=== PATIENT | male | born 1970 | race African-American/Black ===

== ENCOUNTER → 2020-08-12 | Outpatient (CLI) | payer OTHER ==
[~2020-08-12] MED LIST: CELE1CAP4 PO; CELE1CAP9 PO; IBUP80TA PO; IPRA6SP NARES; NICO14DI20 TD; diclofenac
--- NOTE | 2020-08-12 11:30 | RADONC.CN ---
Radiation Oncology Hx/Consult Radiation Oncology Consult Date of Service: Aug 12, 2020 Pt Identifier Jackson Rayo is a 50 year old male 30 pack year current smoker with a new diagnosis of screening colonoscopy detected low rectal cancer [id number]. He is seen for consideration of neoadjuvant chemoradiation. Diagnosis/Treatment History Oncologic History Reports brother had stage IV cancer and ostomy unsure if colorectal or not. 05/18/20 Screening colonoscopy ([facility]) with distal rectal TVA with high grade dysplasia concerning for cancer 06/15/20 CT CAP negative 07/01/21 MRI pelvis rectal protocol ([facility]) mucosal lesion invading muscularis 2.4 cm from verge from 8-11 o'clock, [address] >0.5cm, cT2N1 07/26/20 Flex sig rebiopsy revealing invasive adenocarcinoma arising in TVA Interval History Jackson has minimal complaints today. Had some dyschezia post biopsy but his has resolved. No BRBPR, no difficulty passing BMs or gas. Goes 1-2 times daily regular soft BMs. No weight loss or fatigue. Appetite good. Works overnights at [employer]. Past Medical History: None Past Surgical History: As above Family History: Maternal grandmother breast cancer Brother stage IV cancer (unknown histology) had ostomy Social History: Current 1/2 ppd smoker 30 pack years Non-drinker Allergies / Meds Allergies: Coded Allergies: MS - Bee Venom (Unverified Allergy, Unknown, RASH/INFLAMMATION, 09/13/15) Home Meds Active Scripts Nicotine (Nicotine Patch) 1 Patch Tdsy, 1 PATCH TD DAILYPRN PRN for NICOTINE W ITHDRAWAL for 30 Days, PATCH Prov:JONI CORBETT MD 09/17/15 Review of Systems Constitutional: Denies: Chills, Fever, Night Sweats Eyes: Denies: Pain, Vision change HEENT: Denies: Head Aches, Dysphagia, Sore Throat Skin: Denies: Rash, Lesions, Bruising Pulmonary: Denies: Dyspnea, Cough Cardiovascular: Denies: Chest Pain, Palpitations, Edema Gastrointestinal: Denies: Nausea, Vomiting, Abdominal Pain, Diarrhea Genitourinary: Denies: Dysuria, Frequency, Incontinence Hematologic: Denies: Bruising, Petecchia, Enlarged Lymph Nodes Musculoskeletal: Denies: Neck pain, Back pain Neurological: Denies: Weakness, Numbness, Incoordination Psych: Reports: Mood Normal; Denies: Memory Issues, Thoughts of Self Harm Vital Signs Ht 71" Wt 185 lb T 98 P 74 RR 18 BP 123/81 O2 97% Pain 0 Fatigue 0 General Exam: Positive: Alert, Cooperative, No Acute Distress Eye Exam: Positive: PERRLA, EOMI ENT EXAM: Positive: Mucous membr. moist/pink, Pharynx Normal Neck Exam: Negative: Thyromegaly, Lymphadenopathy Chest Exam: Positive: Normal air movement; Negative: Rales, Rhonchi, Wheezing Heart Exam: Positive: Rate Normal, Regular Rhythm Abdomen Exam: Positive: Soft; Negative: Tenderness, Mass Extremity Exam: Negative: Edema, Tenderness Skin Exam: Positive: Nl turgor and temperature; Negative: Rash Neuro Exam: Positive: Normal Gait, Normal Speech, Cranial Nerves 3-12 NL Psych Exam: Positive: Mental status NL, Mood NL, Memory Intact Other Physical Findings ALEJANDRA, enlarged prostate, no nodularity. ~3 cm from the verge there is a small indurated mucosal lesion in the left lateral lumen ~ centered @ 9 o'clock, no bl ood return on glove. Diagnostic and Laboratory Diagnostic Review Radiologic images, relevant labs and pathology reports were personally reviewed and discussed with Mr. Rayo. Assessment and Plan Impression Mr. Rayo is a 50 year old male 30 pack year current smoker with a new diagnosis of screening colonoscopy detected low rectal cancer [id number]. He is seen for consideration of neoadjuvant chemoradiation. 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 Rayo regarding the diagnosis at hand and available therapeutic options. He is very fit and has minimal tumor burden. The tumor is low, ~2-3 cm from the verge however, which may complicate his resection. I agree with Dr. Augustin that long course chemoradiation 50.4 Gy in 28 fractions with xeloda would be the best initial approach. I would treat him prone with 3D planning and daily CBCT for localization. In his case I will attempt to spare the sphincter complex from high dose as the lesion itself does not extend to the level of the anus, and I would not want to complicate the possibility of a good functional outcome for him if he is able to undergo LAR and re-anastomosis, or even be managed with watchful waiting contingent upon his response. I do not see that he has a medical oncology appointment scheduled, I will facilitate this. We discussed the logistics of receiving radiation therapy in detail including the need for a 1-time planning session. We reviewed the side effects of treatment, skin reaction in the gluteal fold, increased urinary frequency and diarrhea are anticipated. After discussing the risks, benefits and alternatives to radiation therapy, Mr. Rayo was amenable to pursuing radiotherapy. All questions were answered to the patient's satisfaction. We instructed the patient that if there were any questions,concerns or changes in clinical status in the interim to contact us. Recommendations Long course chemoradiation 50.4 Gy in 28 fractions with xeloda Medical oncology referral Simulation next week GRACIE MARCUS MD Aug 12, 2020 11:30
== END ==
LOC: M ONCR 09:44
PROVIDERS: ATTEND General Practice
DX: C20 Malignant neoplasm of rectum (principal)

== ENCOUNTER 2020-08-17 10:10 | Outpatient (RCR) | payer OTHER ==
[2020-08-26] MEDS ORDERED: CAPE1TAB2 PO (15:13)
[2020-08-26] MEDS ORDERED: XELO150T PO (15:20)
[2020-09-03] MEDS ORDERED: CAPE1TAB2 PO (10:50)
[2020-09-03] MEDS ORDERED: XELO150T PO (10:50)
== END 2020-09-12 ==
LOC: M ONCR 10:10
PROVIDERS: ATTEND General Practice
DX: C20 Malignant neoplasm of rectum (principal)

== ENCOUNTER → 2020-10-13 | Outpatient (RCR) | payer OTHER ==
[~2020-10-13] MED LIST changes: +CAPE1TAB2 PO; +HYDR25OIN TOP; +IBUP-1114 PO; +LIDO5OIN19 TOP; +ONDA-83 PO; +XELO150T PO
== END ==
LOC: M ONCR 09-13 09:34
PROVIDERS: ATTEND General Practice
DX: C20 Malignant neoplasm of rectum (principal)

== ENCOUNTER 2020-10-20 09:45 | Outpatient (RCR) | payer OTHER | END 2020-11-12 | LOC: M ONCR 09:45 | PROVIDERS: ATTEND General Practice | DX: C20 Malignant neoplasm of rectum (principal) ==

== ENCOUNTER 2021-01-04 06:37 | Emergency (ER) | payer BC, OTHER ==
[~2021-01-04] VITALS: Ht 177.8 cm; Wt 77.1 kg
[2021-01-04] MEDS ORDERED: LOPE1CAP5 PO (06:53)
[2021-01-04] MEDS ORDERED: OXYC5CAP56 PO (06:53)
[2021-01-04] MEDS ORDERED: NS 1,000 ML IV ONE (07:05)
[2021-01-04 07:39] LABS: BASO % 0.6 % (0.0-1.0); EOS # 0.1 10^3/uL (0.0-0.5); EOS % 1.1 % (0.0-3.0); HEMATOCRIT 38.1 % (42.0-52.0); HEMOGLOBIN 13.3 g/dl (13.5-17.5); LYMPH # 0.5 10^3/uL (1.5-5.0); LYMPH % 8.1 % (24.0-44.0); MEAN CORPUSCULAR HEMOGLOBIN 31.4 pg (27.0-33.0); MEAN CORPUSCULAR HGB CONC 34.9 g/dl (32.0-36.5); MEAN CORPUSCULAR VOLUME 90.1 fl (80.0-96.0); MONO # 1.3 10^3/uL (0.0-0.8); MONO % 21.6 % (2.0-8.0); NEUTROPHILS # 4.2 10^3/uL (1.5-8.5); NEUTROPHILS % 67.6 % (36.0-66.0); PLATELET COUNT, AUTOMATED 403 10^3/uL (150-450); RED BLOOD COUNT 4.23 10^6/uL (4.30-6.10); WHITE BLOOD COUNT 6.2 10^3/uL (4.0-10.0)
--- NOTE | 2021-01-04 07:50 | REP ---
INDICATION: abdominal pain. COMPARISON: No comparison chest. TECHNIQUE: Portable upright AP chest radiograph. FINDINGS: The lungs are well inflated and free of infiltrate. Pleural angles are sharp. Heart size is normal. Pulmonary vasculature is not increased. IMPRESSION: No active disease. <Electronically signed by Eleuterio Shelley > 01/04/21 [id number]
--- NOTE | 2021-01-04 08:03 | ECGEPIP ---
[facility] - ED Test Date: 2021-01-04 Pat Name: PHILIP MCGOWAN Department: Room: - Gender: Male [employer] Programmer: DIVINA : 1970 Requested By: RAO Spear Order Number: [id number] Reading MD: Rao Weiss Measurements Intervals Hen[place] Rate: 88 P: 53 SD: 104 QRS: 73 QRSD: 90 T: 47 QT: 346 QTc: 418 Interpretive Statements Sinus rhythm with sinus arrhythmia with short SD Minimal voltage criteria for LVH, may be normal variant Nonspecific ST-T wave abnormalities Comparison tracing not on file Electronically Signed on 01-04-2021 8:03:19 EDT by Rao Weiss
[2021-01-04 08:07] LABS: ALBUMIN 4.2 GM/DL (3.2-5.2); ALT/SGPT 41 U/L (12-78); BILIRUBIN,DIRECT 0.3 MG/DL (0.0-0.2); BILIRUBIN,TOTAL 1.2 MG/DL (0.2-1.0); BLOOD UREA NITROGEN 26 MG/DL (7-18); CALCIUM LEVEL 8.8 MG/DL (8.5-10.1); CARBON DIOXIDE LEVEL 28 MEQ/L (21-32); CHLORIDE LEVEL 100 MEQ/L (98-107); CK-MB VALUE MASS 1.5 NG/ML (<3.6); CPK CREATINE PHOSPHOKINASE 136 U/L (39-308); CREATININE FOR GFR 1.24 MG/DL (0.70-1.30); GLOMERULAR FILTRATION RATE > 60.0 (>56); GLUCOSE, FASTING 114 MG/DL (70-100); LIPASE 28 U/L (73-393); POTASSIUM SERUM 4.2 MEQ/L (3.5-5.1); SODIUM LEVEL 134 MEQ/L (136-145); TOTAL PROTEIN 8.1 GM/DL (6.4-8.2); TROPONIN I < 0.02 NG/ML (< 0.10)
[2021-01-04] MEDS ORDERED: ISOVUE-370 76% 100ML VIAL As Ordered ONE (08:14)
--- NOTE | 2021-01-04 09:09 | REP ---
INDICATION: 7 day post op colostomy, vomiting, abd pain. COMPARISON: None. TECHNIQUE: Standard helical technique after the intravenous administration of 100 cc Isovue 370. FINDINGS: Curvilinear densities are seen in the lung bases likely chronic fibrotic and/or subsegmental atelectatic changes. The liver, gallbladder, spleen, pancreas, adrenal glands, and kidneys are within normal limits. The abdominal aorta and para-aortic regions are within normal limits. There is a moderate amount of free fluid particularly in the pelvis. There is no evidence of free air. The abdominal aorta and para-aortic regions are within normal limits. The osseous structures are within normal limits. Note is made of a partially imaged cystic appearing lesion in the proximal left femur. There are multiple dilated gas and fluid-filled small bowel loops seen in the abdomen and pelvis. There is 1 transition within the duodenal sweep. There is also narrowing of the bowel at the ostomy site. Additionally, the imaged portion the colon is completely collapsed. There is a right-sided enterostomy site there is a single tiny dot of air density within the anterior abdominal subcutaneous wall adjacent to the ostomy site. This is extraperitoneal. IMPRESSION: 1. Bowel obstruction as described above. Two potential transition sites 1 involving the duodenal sweep, however, distal to this there is small bowel dilatation as well the other possibly at the ostomy site. 2. Moderate free pelvic fluid. 3. Partially imaged cystic appearing proximal left femoral lesion consider follow-up with MRI. 4. Other findings as described above. <Electronically signed by Dejan Mars > 01/04/21 0905
[2021-01-04 10:54] LABS: RSV AMPLIFICATION NEGATIVE (NEGATIVE)
[2021-01-04 13:04] VITALS: BP 151/99
== END 2021-01-04 13:11 | disposition short-term general hospital (02) ==
LOC: M ED 06:37
DX: K56.699 Other intestinal obstruction unspecified as to partial versus complete obstruction (principal); F17.200 Nicotine dependence, unspecified, uncomplicated; C18.9 Malignant neoplasm of colon, unspecified; Z93.3 Colostomy status
CPT/HCPCS: 71045; 74177; 80048; 80076; 81001; 82550; 82553; 83605; 83690; 84484; 85025; 87040; 87631; 93005; 93041; 96360; 96361; 99285; Q9967